=== PATIENT | female | born 1955 | race Two or more races ===

== ENCOUNTER 2017-05-05 06:49 | Day surgery (SDC) | payer BC ==
[~2017-05-05] VITALS: Ht 167.6 cm; Wt 70.3 kg
[2017-05-05] VITALS (9 sets, daily range): BP systolic 119–136; BP diastolic 71–80
[~2017-05-05 06:49] MED LIST: BIOTIN PO; CALCIUM PO; CINNAMON PO; FISH OIL500 MG PO; GINGER PO; GLUCOSAMINE 1,1 EACH PO; MULTIVITAMIN PO; VITAMIN B PO
--- NOTE | 2017-05-05 07:43 | Pre-Procedure Note/Attestation ---
Pre-Procedure Note/Attestation Complete Prior to Procedure Planned Procedure: not applicable Procedure Narrative: esophagogastroduodenoscopy and colonoscopy Indications for Procedure Pre-Operative Diagnosis: GERD, screening colon Attestation I attest that I discussed the nature of the procedure; its benefits; risks and complications; and alternatives (and the risks and benefits of such alternatives ), prior to the procedure, with the patient (or the patient's legal dental detail representative). I attest that, if there was a reasonable possibility of needing a blood transfusion, the patient (or the patient's legal dental detail representative) was given the [facility] standardized written summary, pursuant to the [place] Blood Safety Act ([place] Health and Safety Code # 1645, as amended). I attest that I re-evaluated the patient just prior to the surgery and that there has been no change in the patient's H&P, except as documented below: LILI JARQUIN May 05, 2017 07:43
--- NOTE | 2017-05-05 07:50 | Short Stay Surgery H&P ---
History of Present Illness History of Present Illness Chief Complaint GERD, Screening colon HPI Ronda Zarate is a 61 year old female who was admitted on for Gerd,Colon Screening Patient History Allergies: Coded Allergies: No Known Allergies (Unverified , 05/20/12) PAST MEDICAL HISTORY: Past Surgeries: Social History: Medication History Scheduled Gluc [place]/Chondro [place] A/Vit C/Mn (Glucosamine 1,500 Complex Cap), EACH PO DAILY, ( Reported) [place]-3 Fatty Acids (Fish Oil), MG PO DAILY, (Reported) [Biotin], PO DAILY, (Reported) [Calcium], PO DAILY, (Reported) [Cinnamon], PO DAILY, (Reported) [Yohana], PO DAILY, (Reported) [Multivitamin], PO DAILY, (Reported) [Vitamin B], PO DAILY, (Reported) Review of Systems Cardiovascular: Reports: no symptoms Respiratory: Reports: no symptoms Skeletal: Reports: no symptoms Gastrointestinal: Reports: no symptoms Genitourinary: Reports: no symptoms Neurologic: Reports: no symptoms Endocrine: Reports: no symptoms Hematologic: Reports: no symptoms Physical Exam Vital Signs Last Vital Signs Date Time Temp Pulse Resp B/P (MAP) Pulse Ox O2 Delivery O2 Flow Rate FiO2 05/05/17 07:37 98.0 68 18 119/74 96 Room Air Skin: normal HENT: normal Heart: normal Lungs: normal Abdomen: normal Extremities: normal Plan Plan of Care esophagogastroduodenoscopy and colonoscopy Final Diagnosis: Attestation Are the patient's medical conditions optimized for surgery? Attestation Response: yes LILI JARQUIN May 05, 2017 07:50
--- NOTE | 2017-05-05 07:56 | Anethesia Preoperative Eval ---
Anesthesia Pre-op PMH/ROS General Date of Evaluation: May 05, 2017 Time of Evaluation: 07:52 Anesthesiologist: yeni ASA Score: ASA 2 Mallampati Score Class I : Soft palate, uvula, fauces, pillars visible Class II: Soft palate, uvula, fauces visible Class III: Soft palate, base of uvula visible Class IV: Only hard plate visible Mallampati Classification: Class II Surgeon: sukumar Diagnosis: gerd, colon screening Surgical Procedure: egd/colonoscopy Anesthesia History: none Social History: alcohol use Family History: no anesthesia problems Allergies: Coded Allergies: No Known Allergies (Unverified , 05/20/12) Medications: see eMAR Past Medical History Cardiovascular: Reports: other - hypercholestrolemia Gastrointestinal/Genitourinary: Reports: GERD, other - uterine fibroids Anesthesia Pre-op Phys. Exam Physician Exam Last Vital Signs Date Time Temp Pulse Resp B/P (MAP) Pulse Ox O2 Delivery O2 Flow Rate FiO2 05/05/17 07:37 98.0 68 18 119/74 96 Room Air Constitutional: NAD Neurologic: CN 2-12 intact Cardiovascular: RRR Respiratory: CTA Gastrointestinal: S/NT/ND Airway Exam Mallampati Score: Class II MO: full Neck: supple TMD: 2fb ROM: full Anesthesia Pre-op A/P Risk Assessment & Plan Assessment: asa2 Plan: mac Status Change Before Surgery: No Pre-Antibiotics Drug: DYAN Salazar May 05, 2017 07:56
[2017-05-05] MEDS ORDERED: Midazolam 2mg/2ml Inj IVP PRN (08:00)
[2017-05-05] MEDS ORDERED: fentaNYL 100 mcg/2 mL IV PRN (08:00)
[2017-05-05] MEDS ORDERED: NS Irrig 1000ml ONE (08:00)
[2017-05-05] MEDS ORDERED: DiphenhydrAMINE 50mg/ml Inj IVP PRN (08:00)
[2017-05-05] MEDS ORDERED: Propofol 200mg/20ml IV ONE (08:00)
[2017-05-05] MEDS ORDERED: Lidocaine 1% MPF 10mg/ml 5ml ONE (08:00)
[2017-05-05] MEDS ORDERED: Atropine Inj 1mg/10ml Syr IV PRN (08:00)
--- NOTE | 2017-05-05 08:23 | Endoscopy Procedure Note ---
Endoscopy Procedure Note Indication for Procedure: screening colon, GRD Procedures Performed: EGD, colonoscopy Operative Findings/Diagnosis: gastritis Specimen: yes Pt Tolerated Procedure Well: Yes Estimated Blood Loss: none Anesthesiologist: efrain Anesthesia: MAC Implant(s) used?: No 50 yrs or older w/o bx or poly: Yes 10yrs. F/U not recommended: Yes If not recommended, why?: Above average risk 10 yrs. F/U needed: Yes 18 years or older w/prev. colo: Yes <3yrs. since last colonoscopy: No LILI JARQUIN May 05, 2017 08:23
--- NOTE | 2017-05-05 12:01 | Immediate Post-Op Evaluation ---
Immediate Post-Op Evalulation Immediate Post-Op Evalulation Procedure: egd/colonoscopy Date of Evaluation: May 05, 2017 Time of Evaluation: 08:41 IV Fluids: 500ml 0.9ns Blood Products: none Estimated Blood Loss: negligible Blood Pressure Systolic: 127 Blood Pressure Diastolic: 77 Pulse Rate: 76 Respiratory Rate: 18 O2 Sat by Pulse Oximetry: 100 Temperature (Fahrenheit): 97.0 Pain Score (1-10): 0 Nausea: No Vomiting: No Complications none Patient Status: awake, reacts, patent Hydration Status: adequate Drug: DYAN Salazar May 05, 2017 12:01
--- NOTE | 2017-05-05 12:03 | 48 Hour Post Anesthesia Eval ---
Post Anesthesia Evaluation Procedure: egd/colonoscopy Date of Evaluation: May 05, 2017 Time of Evaluation: 08:43 Blood Pressure Systolic: 123 0: 77 Pulse Rate: 77 Respiratory Rate: 18 Temperature (Fahrenheit): 97.0 O2 Sat by Pulse Oximetry: 100 Airway: patent Nausea: No Vomiting: No Pain Intensity: 0 Hydration Status: adequate Cardiopulmonary Status: stable Mental Status/LOC: patient returned to baseline Post-Anesthesia Complications: none Follow-up care needed: N/A DYAN CARLOS May 05, 2017 12:03
--- NOTE | 2017-05-05 17:45 | Procedure Note ---
DATE OF PROCEDURE: 05/05/2017 SURGEON: Abdulaziz Rosales M.D. PROCEDURE: Upper endoscopy with biopsy and colonoscopy. ANESTHESIA: Per Dr. Connolly. INSTRUMENT: Olympus adult flexible upper endoscope and colonoscope. INDICATION: Chronic GERD, screening colonoscopy, and history of colonic polyp. The procedure, risks, benefits, and possible consequences, including hemorrhage, aspiration, perforation and infection, and alternative treatments, were explained to the patient/legal guardian by Dr. Abdulaziz Rosales and the patient/legal guardian understood and accepted these risks. DESCRIPTION OF PROCEDURE: After informed consent was obtained and the patient was adequately sedated, Olympus upper endoscope was advanced from the mouth into the second portion of the duodenum and retroflexion was performed in the stomach. The patient had evidence of small inlet patch. GE junction was at about 38 cm from the incisors. In the stomach, there was diffuse gastritis. Random biopsy from antrum was obtained to rule out H. pylori infection. The rest of the upper endoscopic examination grossly within normal limits. At this time, the upper endoscope was retrieved and the patient was turned over for colonoscopy. First, a rectal exam was performed, which was positive for external hemorrhoids. Then, the scope was advanced from the rectum into the cecum and subsequently into the terminal ileum. Quality of prep was very good. The patient has evidence of normal colonoscopic examination. No obvious mass, polyp, diverticulosis, or any pathology seen. Retroflexion of rectum showed no evidence of any large internal hemorrhoids. SUMMARY FINDINGS: 1. Gastritis. 2. Inlet patch. 3. External hemorrhoids. RECOMMENDATION: 1. Follow biopsy results. 2. We recommend repeat colonoscopy in 10 years. Abdulaziz Rosales M.D. DR: ALEXIS JOB#: [id number] CC:
== END 2017-05-05 09:45 | disposition home or self-care (01) ==
LOC: GAS 06:49
DX: Z12.11 Encounter for screening for malignant neoplasm of colon (principal); K21.9 Gastro-esophageal reflux disease without esophagitis; K64.4 Residual hemorrhoidal skin tags; K29.50 Unspecified chronic gastritis without bleeding; E78.00 Pure hypercholesterolemia, unspecified
CPT/HCPCS: 43239; 45378; 93005; J2704; 94003; 94150